=== PATIENT | female | born 1955 | race Caucasian/White ===

== ENCOUNTER → 2018-08-23 | Day surgery (SDC) | payer OTHER ==
[~2018-08-23] MED LIST: ACETAMINOPHEN 1000 MG/100 ML 100 ML IV ONE; BENICAR HCT 201 EACH PO; BENICAR20 MG PO; CLINDAMYCIN 600MG / 50ML 50 ML IV ONE; DEXAMETHASONE SOD PHOS INJ 4 MG/ML VIAL ONE; EPHEDRINE SULFATE INJ 50 MG/10 ML SYR ONE; EPINEPHRINE HCL 1:1000 1ML 1 MG/ML AMP ONE; FENTANYL CITRATE/PF 100MCG/2 ML INJ ONE; GLYCOPYRROLATE INJ 1MG/ 5 ML SYR ONE; LEVOTHYROXINE100 MC1 PO; LIDOCAINE 2% /EPINEPHRINE 20 ML SDV INJ ONE; LIDOCAINE HCL (LTA) 4 ML SOLN ONE; LIDOCAINE HCL 2% LOCAL INJ 5 ML SDV VIAL INJ ONE; METOCLOPRAMIDE HCL 10 MG/2ML VIAL ONE; MIDAZOLAM HCL 2 MG/2 ML VIAL ONE; NEOSTIGMINE 5 MG/5ML SYR ONE; ONDANSETRON HCL INJ 2MG/ML 2ML 2 MG/ML VIAL ONE; PHENYLEPHRINE HCL 1% 10 MG/ML VIAL ONE; PROGESTERONE200 MG PO; PROPOFOL IV EMULSION 10 MG/ML 20 ML VIAL ONE; ROCURONIUM BROMIDE 10 MG/ML 5ML VIAL ONE; ROPIVACAINE 0.5% 5 MG/ML 30 ML SDV ONE; SEVOFLURANE INHAL SOLN 250 ML PEN BTL ONE
--- OUTSIDE RECORDS SUMMARY | 2018-08-23 06:15 | XMS REPORT | Clinical Summary ---
Author Author [facility] Address Unknown Phone Unavailable Care Team Providers Care Wool Shearing Supervisor Name Role Phone Asked, No Pcp PCP Unavailable Allergies Comments Active Allergy Reactions Severity Noted Date Slight tightness in throat Cephalexin Rash, Other Low 11/23/2017 (See Comments) Medications End Date Status Medication Sig Dispensed Refills Start Date Active olmesartan (BENICAR) 5 MG Take 5 mg by 0 tablet mouth daily. Active levothyroxine (SYNTHROID, Take 100 mcg 0 LEVOXYL) 100 mcg tablet by mouth daily. Active aspirin (ECOTRIN) 81 MG Take 81 mg by 0 enteric coated tablet mouth daily. Active Problems Not on file Encounters Care Team Description Date Type Specialty Cirilo Castaneda MD Syncope, unspecified syncope type 11/23/2017 Hospital Radiology Encounter Cirilo Castaneda MD Syncope, unspecified syncope type (Primary Dx) 11/17/2017 Transcribe Access Orders after 08/22/2017 Social History Date Tobacco Use Types Packs/Day Years Used Never Assessed Sex Assigned at Date Recorded Not on file Industry Job Start Date Occupation Not on file Not on file Not on file Travel End Travel History Travel Start No recent travel history available. Last Filed Vital Signs Time Taken Vital Sign Reading - Blood Pressure - - Pulse - - Temperature - - Respiratory Rate - - Oxygen Saturation - - Inhaled Oxygen - Concentration 11/23/2017 2:37 PM CDT Weight 102 kg (225 lb) 11/23/2017 2:37 PM CDT Height 175.3 cm (5' 9") 11/23/2017 2:37 PM CDT Body Mass Index 33.23 Plan of Treatment Health Maintenance Due Date Last Done Comments BREAST CANCER SCREENING 2007 COLONOSCOPY SCREENING 2007 SHINGLES VACCINES (#1) 2007 INFLUENZA VACCINE 10/13/2018 Procedures Comments Procedure Name Priority Date/Time Associated Diagnosis CT HEAD W WO CONTRAST Routine 11/23/2017 Syncope, unspecified 4:09 PM CDT syncope type ESTIMATED GFR Routine 11/23/2017 2:51 PM CDT POC CREATININE Routine 11/23/2017 2:51 PM CDT after 08/22/2017 Results * CT Head W Wo Contrast (11/23/2017 4:09 PM CDT) Specimen Narrative Performed At EXAMINATION:CT HEAD W WO CONTRAST RADIANT CLINICAL HISTORY:R55 Syncope and collapse, r55 COMPARISON:None. TECHNIQUE: Noncontrast head CT performed using radiation dose reduction techniques.Technical factors are evaluated and adjusted to ensure appropriate moderation of exposure.Automated dose management technology is applied to adjust radiation exposure while achieving a diagnostic quality image. FINDINGS: The butler-white matter differentiation is preserved. There is no intra-axial or extra-axial hemorrhage. No mass, mass effect, or midline shift is seen. Ventricles and sulci are normal in appearance for patient's age. Basal cisterns are patent. Calvarium is intact. The orbital contents are symmetric and normal in appearance. There is bilateral maxillary air cell mucosal thickening. The mastoid air cells and middle ear cavities are clear. Bilateral carotid siphon atherosclerosis. IMPRESSION: No acute intracranial abnormality identified. I personally reviewed the images and the resident's findings and agree with the final report. [facility]-[id number] Procedure Note Interface, Radiology Results Incoming - 11/23/2017 5:20 PM CDT EXAMINATION: CT HEAD W WO CONTRAST CLINICAL HISTORY: R55 Syncope and collapse, r55 COMPARISON: None. TECHNIQUE: Noncontrast head CT performed using radiation dose reduction techniques. Technical factors are evaluated and adjusted to ensure appropriate moderation of exposure. Automated dose management technology is applied to adjust radiation exposure while achieving a diagnostic quality image. FINDINGS: The butler-white matter differentiation is preserved. There is no intra-axial or extra-axial hemorrhage. No mass, mass effect, or midline shift is seen. Ventricles and sulci are normal in appearance for patient's age. Basal cisterns are patent. Calvarium is intact. The orbital contents are symmetric and normal in appearance. There is bilateral maxillary air cell mucosal thickening. The mastoid air cells and middle ear cavities are clear. Bilateral carotid siphon atherosclerosis. IMPRESSION: No acute intracranial abnormality identified. I personally reviewed the images and the resident's findings and agree with the final report. [facility]-[id number] Performing Organization Address City/State/Zipcode Phone Number [facility] [address] [place] [phone] * Estimated GFR (11/23/2017 2:51 PM CDT) Pathologist [facility] Estimated GFR 69 mL/min/1.73 m2 [facility] Comment: OF PATHOLOGY CatergoryUnitsInte AND GENOMIC rpretation MEDICINE G1 >=90 Normal or high G2 60-89Mildly decreased [id number] Mildly to moderately decreased Q7s83-08 Moderately to severely decreased G4 15-29Severely decreased G5 <15Kidney failure The eGFR was calculated using the Chronic Kidney Disease Epidemiology Collaboration (CKD-EPI) equation. Interpretation is based on recommendations of the National Kidney Foundation-Kidney Disease Outcomes Quality Initiative (NKF-KDOQI) published in 2014. Specimen Blood Performing Organization Address City/[facility]/Zipcode Phone Number [facility] OF [address] [place], [place] [phone] PATHOLOGY AND GENOMIC MEDICINE * POC creatinine (11/23/2017 2:51 PM CDT) Pathologist [facility] POC creatinine 0.9 0.5 - 0.9 mg/dl [facility] Comment: OF PATHOLOGY Meter ID: [id number] AND GENOMIC Help Desk Operator: Zan STEVENS Specimen Blood Performing Organization Address City/State/Zipcode Phone Number [facility] OF [address] [place] [phone] PATHOLOGY AND GENOMIC MEDICINE after 08/22/2017 Insurance Type Payer Benefit Subscriber ID Effective Phone Address Plan / Dates Group HMO/PPO [facility] xxxxxxxxx [id number] [employer]CARE resent CHOICE/CHO ICE + Advance Directives Patient has advance care planning documents on file. For more information, gill peterson contact: [facility] [address] [place] [phone]
--- OUTSIDE RECORDS SUMMARY | 2018-08-23 06:15 | XMS REPORT | Summary of Care ---
Author Author [facility] Address [address] [place] [address] Phone Unavailable Care Team Providers Care Supervisor [employer] Name Role Phone KETAN CHANDLER MD Unavailable Unavailable Functional Status Name Dates Details Functional status health issues are not documented Status: Name Dates Details Cognitive status health issues are not documented Status: Problems Name Dates Details Left knee pain (719.46, M25.562) Status: Active Medications Name Dates Details Medications not documented Allergies and Adverse Reactions Name Dates Details Allergy history not documented Status: Procedures Procedure Dates Details Procedures not documented Immunization Name Dates Details Immunizations not documented Social History Name Dates Details Unknown if ever smoked Vital Signs Date Test Result Details No Known Vitals to report Results Date Description Value Details Results not documented Plan of Care Name Dates Details Planned Observations Planned Goals not documented Planned Encounters Appointment; ISATU LEA P.A. On: 16-Mar-2017 14:00 Instructions Name Dates Details Instructions not documented Encounters Appointment; DYAN EASTON P.A. Encounter Diagnosis: Problem not documented On: 31-Dec-2016 9:00
--- OUTSIDE RECORDS SUMMARY | 2018-08-23 06:15 | XMS REPORT ---
Author Author [facility] Address Unknown Phone Unavailable Care Team Providers Care Cloth Shrinking Supervisor Name Role Phone Unavailable Unavailable Payers Payer Name Policy Type Policy Number Effective Date Expiration Date Problems This patient has no known problems. Allergies, Adverse Reactions, Alerts This patient has no known allergies or adverse reactions. Medications This patient has no known medications.
[2018-08-23 11:10] VITALS: BP 106/66
--- NOTE | 2018-08-23 11:35 | Operative Report ---
DATE OF PROCEDURE: 08/23/2018 SURGEON: Giovanny Castro MD LEG ASSEMBLER: Ho Ferrell PA-C. 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 PROCEDURE: Right shoulder arthroscopy, subacromial decompression, distal clavicle resection and rotator cuff repair. INDICATIONS: The patient is a 63-year-old lady, who has clinic signs and symptoms consistent with a rotator cuff tear in her right shoulder. She has failed extensive conservative management and would like to proceed with arthroscopic intervention. The risks and benefits of rotator cuff repair have been explained. The lengthy recovery has been explained. We also plan on a distal clavicle resection. She states she understands and wishes to proceed. PROCEDURE IN DETAIL: The patient was brought to the operating room and placed under general anesthetic. She received prophylactic antibiotics and a regional block in the holding area. She was positioned in the beach chair position on the shoulder table. Her right upper extremity was prepped and draped in a sterile manner. A preoperative time-out was performed. A standard posterior arthroscopy portal was established. The shoulder was insufflated with sterile saline and systematically inspected. There were some minor grade 1 changes of chondromalacia of the glenohumeral surfaces. There was some type 1 tearing of the labrum. A lateral working portal was established. There was a full-thickness tear of the supraspinatus. A probe was introduced into the shoulder joint through the rotator cuff tear. The labrum was probed and noted to be generally hook stable. The biceps tendon remained in good condition. A thermal shaver was introduced into the shoulder joint. The labrum was gently debrided back to a more stable margin. Before and after photographs were taken. The articular surface of the torn rotator cuff was also debrided back to more healthy tissue. The scope and the shaver were then placed into the subacromial space. A subacromial bursectomy was performed. The bursal surface of the rotator cuff tear was clearly visualized. I elected to go ahead and repair the rotator cuff before further work. The greater tuberosity was gently decorticated. An Arthrex SpeedBridge double row construct was used to repair the rotator cuff. Bioabsorbable anchors preloaded with FiberTape stitches were placed into the articular margin of the greater tuberosity. These were passed through portions of the rotator cuff using an ArthMYRion suture passer. An anterior shuttle portal was established. The FiberTape stitches were then used to secure the rotator cuff down to bleeding cancellous bone with secondary suture anchors in the superolateral humeral cortex. A single stitch from each suture anchor was used to restore the footprint of the rotator cuff. The tear was probed and noted to be under good and appropriate tension. There was excellent opposition of the tendon down to bleeding cancellous bone. The shaver was then reintroduced. A subacromial bone decompression was performed. A distal clavicle resection was performed. The distal clavicle resection required another incision directly in line with the acromioclavicular joint. Once again, before and after photographs were taken. The arthroscopic instruments were then removed. The portal incisions were closed with nylon stitches. A sterile bandage and an UltraSling were applied. There was no blood loss and all needle and sponge counts were correct. Giovanny Castro MD DR/AMY /[id number]
== END | disposition home or self-care (01) ==
LOC: OR 06:12
PROVIDERS: ATTEND Specialist
DX: S46.021A Laceration of muscle(s) and tendon(s) of the rotator cuff of right shoulder, initial encounter (principal); M94.211 Chondromalacia, right shoulder; M13.811 Other specified arthritis, right shoulder; I10 Essential (primary) hypertension; R05 Cough; X58.XXXA Exposure to other specified factors, initial encounter; Y92.89 Other specified places as the place of occurrence of the external cause; Y99.0 Civilian activity done for income or pay; Z88.1 Allergy status to other antibiotic agents; Z01.810 Encounter for preprocedural cardiovascular examination; Z68.33 Body mass index [BMI] 33.0-33.9, adult; Z86.19 Personal history of other infectious and parasitic diseases
CPT/HCPCS: 29824; 29827; 93005; C1713; J0131; J0171; J1100; J2001 ×2; J2250; J2370; J2405; J2704; J2765; J2795; J3490